=== PATIENT | male | born 1980 | race Caucasian/White ===

== ENCOUNTER 2016-10-26 00:51 | Inpatient (IN) | payer OTHER ==
[~2016-10-26] VITALS: Ht 160 cm; Wt 67.3 kg
[~2016-10-26 00:51] MED LIST: ACET-1256 PO; ACET-749 PO; ALBUAER INH
[2016-10-26 01:24] LABS: URINE APPEARANCE CLEAR (CLEAR); URINE BILIRUBIN NEG (NEG); URINE COLOR YELLOW; URINE EPITHELIAL CELL AUTO 0-5 /lpf (0-5); URINE NITRITE NEG (NEG); UROBILINOGEN NEG (NEG); ZZUR CULT IF INDIC CLEAN CATCH NO
[2016-10-26 01:25] LABS: MANUAL MICROSCOPIC REQUIRED? NO; REVIEW REQ? NO
[2016-10-26 01:26] LABS: HEMATOCRIT 48.5 % (42-52); MEAN CELL VOLUME 91.5 fL (80-100); MEAN CORPUSCULAR HEMOGLOBIN 32.1 pg (25-34); MEAN CORPUSCULAR HGB CONC 35.1 g/dl (32-36); MEAN PLATELET VOLUME 9.7 fL (7.4-10.4); PLATELET COUNT 313 K/uL (130-400); WHITE BLOOD COUNT 13.61 K/uL (4.8-10.8)
--- NOTE | 2016-10-26 01:34 | EMERGENCY ROOM VISIT NOTE ---
History Report prepared by Miguel: Amanda Gillette Under the Supervision of: Dr. Ben Solis M.D. First contact with patient: 01:04 Chief Complaint: MENTAL HEALTH EVALUATION Stated Complaint: MENTAL HEALTH ISSUES History of Present Illness The patient is a 36 year old male who presents to the Emergency Room for a mental health evaluation. The patient has a history of PTSD, anxiety, and depression with psychotic features. He has had multiple suicide attempts in the past. The patient states that his depression has been doing well for the past couple of years but he has recently "hit a rough patch in life and everything is tumbling down." About 3 weeks ago he started having suicidal thoughts and made a plan, but he started feeling better and the thoughts went away. Recently the thoughts started coming back and he is afraid that he is going to act on them. His mother is nervous that he is going to act on these thoughts and she confirms that his depression and suicidal ideation has been much worse recently. It is similar to times in the past where he has attempted suicide and she is afraid this is going to happen again. The patient states that " everything is setting off" his depression. He recently found out that his son wanted him to be back in his life, but when the patient contacted his son's mother she stated that was untrue. The patient has been having panic attacks and has not been sleeping well. He denies any drug or alcohol use. He is not currently taking any medications or following up with a psychiatrist or counselor. He denies abdominal pain and chest pain. 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 A total of 10 systems reviewed and were otherwise negative. Past Medical & Surgical Medical Problems: (1) Anxiety (2) Dental caries (3) Dental caries (4) Depression (5) Gastric ulcer (6) H/O gastroesophageal reflux (GERD) (7) Hypertension (8) Hypertension Nos (9) Lumbago (10) Pain, dental (11) PTSD (post-traumatic stress disorder) (12) Reflux Esophagitis (13) Sinusitis (14) Tobacco Use Disorder Surgical Problems: (1) Hx of cholecystectomy (2) S/P cholecystectomy Family History Cancer Diabetes mellitus Gallbladder disease Heart disease Hypertension Kidney disease Kidney stones Lung disease Seizures Social History Smoking Status: Current Every Day Smoker Alcohol Use: occasionally Marital Status: in relationship Housing Status: lives with significant other Occupation Status: employed Current/Historical Medications Scheduled Pantoprazole Sodium (Protonix), 40 MG PO DAILY Scheduled PRN Acetaminophen (Tylenol), 1,000 MG PO Q6H PRN for Headache or Pain Acetaminophen/Codeine (Tylenol W/Codeine #3), 1-2 TABS PO Q6H PRN for Pain Albuterol (Proventil Hfa), 2 PUFFS INH QID PRN for SOB/Wheezing Allergies Coded Allergies: Tramadol (Verified Allergy, Mild, SHORTNESS OF BREATH, 10/26/16) Ibuprofen (Verified Adverse Reaction, Unknown, Bleeding Ulcers, 10/26/16) Reported by PT. Uncoded Allergies: FISH (Allergy, Unknown, RASH, 12/09/14) Physical Exam Vital Signs Date Time Temp Pulse Resp B/P Pulse Ox O2 Delivery O2 Flow Rate FiO2 10/26/16 02:02 69 20 137/85 97 Room Air 10/26/16 00:54 37.1 84 16 161/101 99 Room Air Physical Exam GENERAL: Patient is depressed appearing and in no acute distress. HEENT: No acute trauma, normocephalic atraumatic, mucous membranes moist, no nasal congestion, no scleral icterus. NECK: No stridor, no adenopathy, no meningismus, trachea is midline. LUNGS: No dyspnea. Clear to auscultation and equal bilaterally. No wheeze, no rhonchi. HEART: Regular rate and rhythm. No murmurs, rubs, gallops appreciated. ABDOMEN: Soft, nontender, bowel sounds positive, no masses appreciated, no peritonitis. BACK: No midline tenderness, no CVA tenderness EXTREMITIES: Normal motion all extremities, no cyanosis, no edema. NEUROLOGIC: Alert and oriented, no acute motor or sensory deficits, no focal weakness, cranial nerves grossly intact. SKIN: No rash, no jaundice, no diaphoresis. PSYCH: Admits depression, admits SI with a plan, denies hallucination, denies HI. Medical Decision & Procedures Laboratory Results 10/26/16 01:15 Red Blood Count 5.30, Mean Corpuscular Volume 91.5, Mean Corpuscular Hemoglobin 32.1, Mean Corpuscular Hemoglobin Concent 35.1, Mean Platelet Volume 9.7 10/26/16 01:15 Test 10/26/16 01:08 10/26/16 01:15 Urine Color YELLOW Urine Appearance CLEAR (CLEAR) Urine pH 6.0 (4.5-7.5) Urine Specific [place] 1.000 (1.000-1.030) Urine Protein NEG (NEG) Urine Glucose (UA) NEG (NEG) Urine Ketones NEG (NEG) Urine Occult Blood NEG (NEG) Urine Nitrite NEG (NEG) Urine Bilirubin NEG (NEG) Urine Urobilinogen NEG (NEG) Urine Leukocyte Esterase NEG (NEG) Urine WBC (Auto) 0 /hpf (0-5) Urine RBC (Auto) 0-4 /hpf (0-4) Urine Hyaline Casts (Auto) 0 /lpf (0-5) Urine Epithelial Cells (Auto) 0-5 /lpf (0-5) Urine Bacteria (Auto) NEG (NEG) Urine Opiates Screen POS (NEG) Urine Methadone, Qualitative NEG (NEG) Urine Barbiturates NEG (NEG) Urine Phencyclidine (PCP) Level NEG (NEG) Ur Amphetamine/Methamphetamine NEG (NEG) MDMA (Ecstasy) Screen NEG (NEG) Urine Benzodiazepines Screen NEG (NEG) Urine Cocaine Metabolite NEG (NEG) Urine Marijuana (THC) POS (NEG) White Blood Count 13.61 K/uL (4.8-10.8) Red Blood Count 5.30 M/uL (4.7-6.1) Hemoglobin 17.0 g/dL (14.0-18.0) Hematocrit 48.5 % (42-52) Mean Corpuscular Volume 91.5 fL (80-100) Mean Corpuscular Hemoglobin 32.1 pg (25-34) Mean Corpuscular Hemoglobin Concent 35.1 g/dl (32-36) Platelet Count 313 K/uL (130-400) Mean Platelet Volume 9.7 fL (7.4-10.4) RDW Standard Deviation 43.3 fL (36.4-46.3) RDW Coefficient of Variation 12.9 % (11.5-14.5) Neutrophils % (Manual) 43.1 % Lymphocytes % (Manual) 28.4 % Variant Lymphocytes % (manual) 15.6 % Monocytes % (Manual) 10.1 % Basophils % (Manual) 2.8 % (0-2) Neutrophils # (Manual) 5.87 K/uL (1.4-6.5) Total Absolute Neutrophils 5.87 K/uL (1.4-6.5) Lymphocytes # (Manual) 3.87 K/uL (1.2-3.4) Absolute Variant Lymphocytes 2.12 K/uL Total Absolute Lymphocytes 5.99 K/uL (1.2-3.4) Monocytes # (Manual) 1.37 K/uL (0.11-0.59) Basophils # (Manual) 0.38 K/uL (0-0.2) Anion Gap 9.0 mmol/L (3-11) Est Creatinine Clear Calc Drug Dose 75.9 ml/min Estimated GFR () 90.9 Estimated GFR (Non- 78.4 BUN/Creatinine Ratio 10.1 (10-20) Calcium Level 9.0 mg/dl (8.5-10.1) Total Bilirubin 0.5 mg/dl (0.2-1) Aspartate Amino Transf (AST/SGOT) 16 U/L (15-37) Alanine Aminotransferase (ALT/SGPT) 29 U/L (12-78) Alkaline Phosphatase 97 U/L (45-117) Total Protein 7.5 gm/dl (6.4-8.2) Albumin 4.1 gm/dl (3.4-5.0) Globulin 3.4 gm/dl (2.5-4.0) Albumin/Globulin Ratio 1.2 (0.9-2) Thyroid Stimulating Hormone (TSH) 3.070 uIu/ml (0.300-4.500) Salicylates Level 1.8 mg/dl (2.8-20) Acetaminophen Level < 2 ug/ml (10-30) Ethyl Alcohol mg/dL < 3.0 mg/dl (0-3) Laboratory results as reviewed by me. ED Course 0104: The patient was evaluated in room A6. A complete history and physical exam was performed. 0133: [facility] was consulted. 0324: The patient has been accepted to [facility] for further management. Medical Decision Differential: Mood Disorder, Overdose, Infectious, Electrolyte Abnormality, Cardiac, Hepatic, Endocrine, Toxicologic, Neurologic, amongst other pathologies entertained. 36 yr old male arrives stating he is thinking of killing himself. Long history of depression with previous suicide attempts and admissions to psych facilities. Denies drug use though clearly Drug Urine positive. Etoh negative. He is not acutely intoxicated. Just mild WBC elevation without infectious findings thus non-specific. Mild low BG consistent with decreased eating recently. Not symptomatic hypoglycemia. Medically clear for psychiatric treatment which in this case will need inpatient treatment. Impression Primary Impression: Suicidal thoughts Additional Impression: Depression Scribe Attestation The scribe's documentation has been prepared under my direction and personally reviewed by me in its entirety. I confirm that the note above accurately reflects all work, treatment, procedures, and medical decision making performed by me. Departure Information Dispostion Mental Health Acute Care Referrals Cristel Espinoza (PCP) Patient Instructions [facility] Problem Qualifiers Additional Impression: Depression Depression Type: major depressive disorder Major depression recurrence: recurrent Active/Remission status: currently active Major depression episode severity: severe Psychotic features: without psychotic features Qualified Codes: F33.2 - Major depressive disorder, recurrent severe without psychotic features
[2016-10-26 01:50] LABS: BUN/CREATININE RATIO 10.1 (10-20); CREATININE 1.2 mg/dl (0.60-1.40); POTASSIUM 3.6 mmol/L (3.5-5.1)
[2016-10-26 01:52] LABS: BENZODIAZEPINE, URINE NEG (NEG); COCAINE,URINE NEG (NEG); PHENCYCLIDINE, URINE NEG (NEG)
[2016-10-26 01:54] LABS: ACETAMINOPHEN < 2 ug/ml (10-30)
[2016-10-26 02:00] LABS: ALB/GLOB RATIO 1.2 (0.9-2); THYROID STIMULATING HORMONE 3.07 uIu/ml (0.300-4.500)
[2016-10-26 02:14] LABS: BASO ABS # 0.38 K/uL (0-0.2); BASOPHIL % 2.8 % (0-2); COMPLETE YES; LYMPH ABS # 3.87 K/uL (1.2-3.4); LYMPHOCYTE % 28.4 %; NEUTROPHILS % 43.1 %; VARIANT LYM ABS # 2.12 K/uL; VARIANT LYMPHOCYTE % 15.6 %
[2016-10-26 03:29] VITALS: O2SAT 97
[2016-10-26] MEDS ORDERED: NURSING VERBAL MED ORDER ONE (03:30)
[2016-10-26 03:43] VITALS: BP 142/72; PULSE 72; TEMP 37.1; Ht 160 cm; Wt 67.3 kg
[2016-10-26] MEDS ORDERED: SODIUM CHLORIDE 0.65% NA SOLN 45 ML (OCEAN) PRN (05:00)
[2016-10-26] MEDS ORDERED: MAGNESIUM HYDROXIDE SUSP 30 ML UDC PO PRN (05:00)
[2016-10-26] MEDS ORDERED: BISMUTH SUBSALICYLATE PER ML OMNICELL CHARGE PO PRN (05:00)
[2016-10-26] MEDS ORDERED: ACETAMINOPHEN 325 MG TAB PO PRN (05:00)
[2016-10-26] MEDS ORDERED: ALUMINUM/MAGNESIUM SUSP 30 ML UDC PO PRN (05:00)
[2016-10-26] MEDS ORDERED: hydrOXYzine HCL 25 MG TAB PO PRN ×2 (05:00)
[2016-10-26 06:25] VITALS: BP 142/72; PULSE 72; TEMP 37.1
[2016-10-26] MEDS: NICOTINE 21 MG/24 HR TDSY EXT SCH (09:03)
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
[2016-10-26] MEDS ORDERED: CLONIDINE HCL 0.1 MG TAB PO ONE (11:45)
[2016-10-26] MEDS ORDERED: NICOTINE POLACRILEX 2 MG GUM MT PRN (12:00)
[2016-10-26 12:13] VITALS: BP 152/103; PULSE 62; TEMP 37
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
[2016-10-26 21:21] VITALS: BP 151/99; PULSE 62
[2016-10-26] MEDS: CLONIDINE HCL 0.1 MG TAB PO SCH (21:23)
[2016-10-27 06:54] VITALS: BP_SYST 127; BP_SYST 133; BP_DIAS 82; BP_DIAS 87; PULSE 65; PULSE 66; TEMP 36.5
--- NOTE | 2016-10-27 08:04 | Psychiatric Progress Notes ---
Progress Note Date of Service Oct 27, 2016. Interval History Enmanuel Jennings is a 36-year-old male who currently lives in [place] with his mother and was admitted on a 201 voluntary commitmentfor SI. Last admit to [facility] was 12/08 on 302 after argument with his mother. Chief Complaint "Tired". Subjective Patient was seen & assessed interval progress reviewed with nursing. Staff report he signed a limited JOZEF for his PO, but doesn't want him to know about his ongoing substance abuse. His mother spoke to staff and wants him to go to inpatient rehab, but he is refusing. This morning, he is seen in his room, where he is still in bed, skipping breakfast. He has gotten 2 doses of clonidine, and thinks it helped to calm him down and helped him to fall asleep, but he then woke up multiple times over night. His mood is improving, and he thinks that it is helping him to know that he is getting help. He denies suicidal thoughts. He reports sweats, but denies other withdrawal symptoms, and denies urges to use. He does not think that he has a substance abuse problem, and is refusing the recommendations for rehabilitation or even outpatient substance abuse treatment, stating "I've already done that. I don't have a problem with anything." When it is pointed out that he still using substances, he says, "well I didn't use for 5 years. I know all my triggers. I don't need drug and alcohol treatment." He states that his primary concerns in coming to the hospital was that he has financial problems, and wants us to get him on disability. Sleep Information Total Hours of Sleep: 6.50 Meal Information Percent of Breakfast Consumed: 0 Percent of Lunch Consumed: 100 Percent of Dinner Consumed: 90 Mental Status Exam During interview pt is: alert and oriented, other (partially cooperative) Appearance: appropriately dressed, disheveled, other (poor dentition) Eye contact is: fair Motor behavior is: no abnormal motor movements Speech: normal in rate, rhythm & volume Affect: other (tired) Mood is: other ("better") Thought process: concrete Thought content: reality based without delusions Suicidal thought are: denied Homicidal thoughts are: denied Hallucinations: denies auditory, denies visual Cognition: attention grossly intact (c/o poor concentration) Intelligence estimated to be: consistent with level of education Insight: poor Judgement: poor Impression 36 yo male with a history of multiple suicide attempts, intermittent explosive outbursts, past substance abuse and ongoing self medication of his self- proclaimed PTSD with MJ presents with SI with plan to OD on past prescription medication. Certainly presentation consistent with multiple diagnoses ( including borderline and/or antisocial personality disorder), but given repeated bouts of depression alternating with explosive mood, diagnosis of unspecified bipolar disorder seems most appropriate at this time. Also suspect a component of malingering, as he states his primary goal in coming to the hospital was in order to get disability. He is refusing recommendations that he addresses substance use, which is ongoing and likely contributing to his mood symptoms. Plan (1) Bipolar disorder patient refuses to restart Seroquel and will work with family to safely dispose of home supply. risks/benefits/alternatives reviewed re: lamictal. Discussion included but was not limited to need to slow titration due to risk of Mohan's Josep. He wanted time to consider as in general is resistant to restarting mood medication. reviewed options to regulate sleep and help with irritability/impulsivity, He was agreeable to a trial of clonidine. Will start 0.05 mg po BID and 0.1 mg hs. Discussion included but not limited to risks of hypotension/bradycardia and would need to consider short supplies if remains suicidal, especially if not agreeable to mood stabilizer. Certainly would need to contract to take regularly so no rebound hypertension. 3/4 - patient agreeing to lamotrigine trial. Will start standard titration schedule with 25mg daily x 2 week, then 50mg daily x 2 week, etc. Continue clonidine. (2) Legal problem JOZEF for PO to confirm dates of hospitalization, patient states he doesn't want records/drug test results shared, encouraged patient to discuss specifically what info does/doesn't want shared with administrator social welfare. (3) Nicotine dependence patch and gum nicotine replacement (4) Cannabis use disorder, mild, in sustained remission, in controlled environment, abuse The patient's drug use is admittedly self medication and against his goals related to probation. Brief intervention was offered Intervention (if performed) was greater than 5 min in length. Summary of intervention: The patient is in precontemplation stage with regards to transtheoretical model of change. The patient is advised to decrease MJ use due to depressant effects and risk of interactions with prescription medications. The patient doesn't plan to stop using as feels matter of time before able to qualify for medical MJ in [place] based on past diagnosis of PTSD. 10/27 - again reviewed the risks of ongoing substance abuse, including worsening of mood and anxiety symptoms, and the recommendations for substance abuse treatment, which she continues to refuse. (5) Hypertension will monitor BP on unit, clonidine for aggression/impulsivity should be helpful for BP will encourage PCP follow up upon discharge (6) antisocial personality traits (7) Opiate abuse, continuous Continue to abuse prescription opiates, and h/o heroin abuse Avoid prescription of controlled substances, medications that are addictive or abusable Recommend substance abuse treatment, which he is not interested in Visit Code E&M Code: 79723 Inventory Assets Strengths: desire to stay out of long-term, previously did establish rapport with a therapist Needs: employment, therapy Risk Factors Assessment Male: Yes : Yes /single/: Yes Higher / Fall in social status: Yes Health problems: No Mental Health Diagnoses: Yes Substance use disorders: Yes Previous attempt: Yes Previous psychiatric stay: Yes Smoker: Yes Protective Factors Assessment Zoroastrian beliefs: No : No Responsible for young children: Yes (would like relationship with children) Data Vital Signs Last 24 Hrs: Date Time Temp Pulse Resp B/P Pulse Ox O2 Delivery O2 Flow Rate FiO2 10/27/16 06:54 36.5 65 16 127/82 66 133/87 10/26/16 21:21 62 18 151/99 10/26/16 12:13 37.0 62 18 152/103 Meds Administered Last 24 Hrs: Meds Administered (Past 24Hrs) Medications (Trade) Dose Ordered Sig/Domonique Route Start Time Stop Time Status Last Admin Dose Admin Nicotine (Nicoderm Cq 21MG Patch) 1 patch QAM EXT 10/26/16 09:00 11/25/16 08:59 10/26/16 09:03 1 PATCH Clonidine HCl (Catapres Tab) 0.1 mg HS PO 10/26/16 22:00 11/25/16 21:59 10/26/16 21:23 0.1 MG Clonidine HCl (Catapres Tab) 0.05 mg NOW ONCE PO 10/26/16 11:45 10/26/16 11:48 DC 10/26/16 12:18 0.05 MG Problem Qualifiers (1) Bipolar disorder: Active/Remission status: currently active Current bipolar episode type: mixed Current episode severity: severe Psychotic features: without psychotic features Qualified Codes: F31.63 - Bipolar disorder, current episode mixed, severe, without psychotic features
[2016-10-27] MEDS: NICOTINE 21 MG/24 HR TDSY EXT SCH ×2 (08:56→18:51)
[2016-10-27 12:05] VITALS: BP 129/87; PULSE 80
[2016-10-27] MEDS: CLONIDINE HCL 0.1 MG TAB PO SCH ×3 (12:08→21:50)
[2016-10-27] MEDS ORDERED: CLONIDINE HCL 0.1 MG TAB PO SCH (17:00)
[2016-10-27 17:35] VITALS: BP 131/90; PULSE 64
[2016-10-27 21:51] VITALS: BP 141/95; PULSE 66
[2016-10-28 06:43] VITALS: BP_SYST 129; BP_SYST 141; BP_DIAS 83; BP_DIAS 93; PULSE 60; PULSE 73; TEMP 36.5
--- NOTE | 2016-10-28 07:55 | Psychiatric Progress Notes ---
Progress Note Date of Service Oct 28, 2016. Interval History Enmanuel Jennings is a 36-year-old male who currently lives in [place] with his mother and was admitted on a 201 voluntary commitmentfor . Last admit to [facility] was 12/08 on 302 after argument with his mother. Chief Complaint "Tired". Subjective Patient was seen & assessed interval progress reviewed with nursing. Staff report he had an angry phone call with his mother where he hung up on her. He was supposed to schedule a time for her to come in for a meeting, but did not. He stated bed all morning, but got up around lunch time, attended group and talked about his poor relationship with his father. Today, he was seen in his room, where he is still in bed, having missed all morning groups. He states that he couldn't sleep all night, and then sleeps through the first half of the day. When it was suggested that he get up, so that he will be more tired at bedtime tonight, he says "I can't, I get headaches." He talked to his mother on the phone yesterday and says "it was michael, but I smoothed it out." She says his mother hung up on him because he told her that she needed to get help. He is willing to do a meeting with his mother tomorrow, and is also requesting a meeting with his diplomatic officer, stating he missed his scheduled appointment with him last week. He states his diplomatic officer is "mad at me" because he hasn't been following the terms of his probation. He reports mood that is "all over the place, my anxiety still not going away." He says he has tried breathing exercises and "going to my own little happy place, but it don't work, just takes the anxiety down some...is there anything else I can get for anxiety?" When advised that he has hydroxyzine ordered, he says it doesn't work for him. He again asks about disability, stating "this whole job thing is killing me, I don't know how people do it, just go to work every day." Again reviewed treatment recommendations with him, including the importance of addressing his substance abuse, which she continues to denies a problem. He says "I only get high to help cope with everything, so I won't kill myself. I' m willing to do whatever it takes to stop me from killing myself. Sleep Information Total Hours of Sleep: 10.25 Meal Information Percent of Breakfast Consumed: 0 Percent of Lunch Consumed: 75 Percent of Dinner Consumed: 100 Mental Status Exam During interview pt is: alert and oriented, other (partially cooperative) Appearance: appropriately dressed, disheveled, other (poor dentition, still in bed midday) Eye contact is: fair Motor behavior is: no abnormal motor movements Speech: normal in rate, rhythm & volume Affect: blunted Mood is: other ("tired") Thought process: concrete (focused on wanting disability) Thought content: reality based without delusions Suicidal thought are: denied Homicidal thoughts are: denied Hallucinations: denies auditory, denies visual Cognition: attention grossly intact, language grossly intact Intelligence estimated to be: consistent with level of education Insight: poor Judgement: poor Impression 36 yo male with a history of multiple suicide attempts, anger outbursts outbursts, substance abuse and ongoing self medication of his self-proclaimed PTSD with MJ presents with SI with plan to OD on past prescription medication. Certainly presentation consistent with multiple diagnoses (including borderline and/or antisocial personality disorder), but given repeated bouts of depression alternating with explosive mood, diagnosis of unspecified bipolar disorder was given on admission, and he was started on clonidine, and then lamotrigine. Also suspect a significant component of antisocial personality disorder and malingering, as he states his primary goal in coming to the hospital was in order to get disability. He is refusing recommendations that he addresses substance use, which is ongoing and likely contributing to his mood symptoms. Plan (1) Bipolar disorder patient refuses to restart Seroquel and will work with family to safely dispose of home supply. risks/benefits/alternatives reviewed re: lamictal. Discussion included but was not limited to need to slow titration due to risk of Mohan's Josep. He wanted time to consider as in general is resistant to restarting mood medication. reviewed options to regulate sleep and help with irritability/impulsivity, He was agreeable to a trial of clonidine. Will start 0.05 mg po BID and 0.1 mg hs. Discussion included but not limited to risks of hypotension/bradycardia and would need to consider short supplies if remains suicidal, especially if not agreeable to mood stabilizer. Certainly would need to contract to take regularly so no rebound hypertension. 3/4 - patient agreeing to lamotrigine trial. Will start standard titration schedule with 25mg daily x 2 week, then 50mg daily x 2 week, etc. Continue clonidine. 3/5 - patient is requesting a family meeting with his mother and with his diplomatic officer, to be scheduled for tomorrow. He is requesting a referral to [facility], where he has been seen in the past. (2) Legal problem JOZEF for PO to confirm dates of hospitalization, patient states he doesn't want records/drug test results shared, encouraged patient to discuss specifically what info does/doesn't want shared with long term care social worker. (3) Nicotine dependence patch and gum nicotine replacement (4) Cannabis use disorder, mild, in sustained remission, in controlled environment, abuse The patient's drug use is admittedly self medication and against his goals related to probation. Brief intervention was offered Intervention (if performed) was greater than 5 min in length. Summary of intervention: The patient is in precontemplation stage with regards to transtheoretical model of change. The patient is advised to decrease MJ use due to depressant effects and risk of interactions with prescription medications. The patient doesn't plan to stop using as feels matter of time before able to qualify for medical MJ in [place] based on past diagnosis of PTSD. 3/ - again reviewed the risks of ongoing substance abuse, including worsening of mood and anxiety symptoms, and the recommendations for substance abuse treatment, which she continues to refuse. 35 - patient continues to minimize his substance abuse, today stating that he only uses to stop himself from committing suicide. He continues to refuse the recommendations for substance abuse treatment. (5) Hypertension will monitor BP on unit, clonidine for aggression/impulsivity should be helpful for BP will encourage PCP follow up upon discharge (6) antisocial personality traits Past history reveals a pattern of repeated ask that her grounds for arrest, impulsivity and failure to plan ahead, irritability and aggressiveness, and consistent irresponsibility. (7) Opiate abuse, continuous Continue to abuse prescription opiates, and h/o heroin abuse Avoid prescription of controlled substances, medications that are addictive or abusable Recommend substance abuse treatment, which he is not interested in Visit Code E&M Code: 68088 Inventory Assets Strengths: desire to stay out of group home, previously did establish rapport with a therapist Needs: employment, therapy Risk Factors Assessment Male: Yes : Yes /single/: Yes Higher / Fall in social status: Yes Health problems: No Mental Health Diagnoses: Yes Substance use disorders: Yes Previous attempt: Yes Previous psychiatric stay: Yes Smoker: Yes Protective Factors Assessment Pentecostal beliefs: No : No Responsible for young children: Yes (would like relationship with children) Data Vital Signs Last 24 Hrs: Date Time Temp Pulse Resp B/P Pulse Ox O2 Delivery O2 Flow Rate FiO2 10/28/16 06:43 36.5 60 16 129/83 73 141/93 10/27/16 21:51 66 141/95 10/27/16 17:35 64 131/90 10/27/16 12:05 80 18 129/87 Meds Administered Last 24 Hrs: Meds Administered (Past 24Hrs) Medications (Trade) Dose Ordered Sig/Domonique Route Start Time Stop Time Status Last Admin Dose Admin Nicotine (Nicoderm Cq 21MG Patch) 1 patch QAM EXT 10/26/16 09:00 11/25/16 08:59 10/27/16 18:51 1 PATCH Miscellaneous (Remove Nicoderm Patch) 1 ea QAM N/A 10/27/16 09:00 11/26/16 08:59 10/27/16 09:27 1 EA Clonidine HCl (Catapres Tab) 0.1 mg HS PO 10/26/16 22:00 11/25/16 21:59 10/27/16 21:50 0.1 MG Clonidine HCl (Catapres Tab) 0.05 mg NOW ONCE PO 10/26/16 11:45 10/26/16 11:48 DC 10/26/16 12:18 0.05 MG Clonidine HCl (Catapres Tab) 0.05 mg BID17 PO 10/27/16 12:00 11/26/16 11:59 10/27/16 17:40 0.05 MG Problem Qualifiers (1) Bipolar disorder: Active/Remission status: currently active Current bipolar episode type: mixed Current episode severity: severe Psychotic features: without psychotic features Qualified Codes: F31.63 - Bipolar disorder, current episode mixed, severe, without psychotic features
[2016-10-28] MEDS: NICOTINE 21 MG/24 HR TDSY EXT SCH ×2 (09:00→17:28)
[2016-10-28] MEDS: CLONIDINE HCL 0.1 MG TAB PO SCH ×3 (09:00→21:08)
[2016-10-28 21:07] VITALS: BP 127/84; PULSE 78
[2016-10-29 06:50] VITALS: BP_SYST 124; BP_SYST 125; BP_DIAS 79; BP_DIAS 88; PULSE 61; PULSE 75; TEMP 36.5
[2016-10-29] MEDS: NICOTINE 21 MG/24 HR TDSY EXT SCH (09:18)
[2016-10-29] MEDS: CLONIDINE HCL 0.1 MG TAB PO SCH ×3 (09:18→22:07)
--- NOTE | 2016-10-29 13:21 | Psychiatric Progress Notes ---
Progress Note Date of Service Oct 29, 2016. Interval History Enmanuel Jennings is a 36-year-old male who currently lives in [place] with his mother and was admitted on a 201 voluntary commitmentfor SI. Last admit to [facility] was 12/08 on 302 after argument with his mother. Chief Complaint "Okay". Subjective Patient was seen & assessed interval progress reviewed with Treatment Team. Staff report he told them today he was willing for a referral to rehab. When asked what changed his mind, he says "three different people asked about rehab, and I guess I will try it." He is only willing to go to [facility], and is refusing to consider [facility] and [place] facilities, even after being told that [facility] declined to accept him. He says he doesn't really need to go to rehab, because "I've been in here, getting away from it, really don't think I have a problem," and thinks he will just do outpatient treatment. He says he "wants to figure out the meaning of my impulsive behaviors, I've read up on that, and it fits me right to a T." He wants to continue to work on "coping skills" here, saying he "doesn't know which ones to use," saying he's been using substances "to cope." He continues to deny SI, is eating well, and is sleeping >8 hours a day, although he reports frequent awakening. Sleep Information Total Hours of Sleep: 5.50 Meal Information Percent of Breakfast Consumed: 0 Percent of Lunch Consumed: 100 Percent of Dinner Consumed: 100 Mental Status Exam During interview pt is: alert and oriented Appearance: appropriately dressed, disheveled, other (poor dentition) Eye contact is: fair Motor behavior is: no abnormal motor movements Speech: normal in rate, rhythm & volume Affect: blunted Mood is: other ("okay") Thought process: concrete Thought content: reality based without delusions Suicidal thought are: denied Homicidal thoughts are: denied Hallucinations: denies auditory, denies visual Cognition: attention grossly intact, language grossly intact Intelligence estimated to be: consistent with level of education Insight: poor Judgement: poor Impression 36 yo male with a history of multiple suicide attempts, anger outbursts outbursts, substance abuse and ongoing self medication of his self-proclaimed PTSD with MJ presents with SI with plan to OD on past prescription medication. Certainly presentation consistent with multiple diagnoses (including borderline and/or antisocial personality disorder), but given repeated bouts of depression alternating with explosive mood, diagnosis of unspecified bipolar disorder was given on admission, and he was started on clonidine, and then lamotrigine. Also suspect a significant component of antisocial personality disorder and malingering, as he states his primary goal in coming to the hospital was in order to get disability. He is refusing recommendations that he addresses substance use, which is ongoing and likely contributing to his mood symptoms. Plan (1) Bipolar disorder patient refuses to restart Seroquel and will work with family to safely dispose of home supply. risks/benefits/alternatives reviewed re: lamictal. Discussion included but was not limited to need to slow titration due to risk of Mohan's Josep. He wanted time to consider as in general is resistant to restarting mood medication. reviewed options to regulate sleep and help with irritability/impulsivity, He was agreeable to a trial of clonidine. Will start 0.05 mg po BID and 0.1 mg hs. Discussion included but not limited to risks of hypotension/bradycardia and would need to consider short supplies if remains suicidal, especially if not agreeable to mood stabilizer. Certainly would need to contract to take regularly so no rebound hypertension. 3/4 - patient agreeing to lamotrigine trial. Will start standard titration schedule with 25mg daily x 2 week, then 50mg daily x 2 week, etc. Continue clonidine. 35 - patient is requesting a family meeting with his mother and with his chief communications officer, to be scheduled for tomorrow. He is requesting a referral to [facility], where he has been seen in the past. 3/6 - patient agreed to rehab, but only [facility], which declined him. Refusing to consider going to another facility. Now wants IOP. Mother has not returned calls to schedule a family meeting. Need to schedule meeting with PO. (2) Legal problem JOZEF for PO to confirm dates of hospitalization, patient states he doesn't want records/drug test results shared, encouraged patient to discuss specifically what info does/doesn't want shared with manager social responsibility. (3) Nicotine dependence patch and gum nicotine replacement (4) Cannabis use disorder, mild, in sustained remission, in controlled environment, abuse The patient's drug use is admittedly self medication and against his goals related to probation. Brief intervention was offered Intervention (if performed) was greater than 5 min in length. Summary of intervention: The patient is in precontemplation stage with regards to transtheoretical model of change. The patient is advised to decrease MJ use due to depressant effects and risk of interactions with prescription medications. The patient doesn't plan to stop using as feels matter of time before able to qualify for medical MJ in [place] based on past diagnosis of PTSD. 10/27 - again reviewed the risks of ongoing substance abuse, including worsening of mood and anxiety symptoms, and the recommendations for substance abuse treatment, which she continues to refuse. 10/28 - patient continues to minimize his substance abuse, today stating that he only uses to stop himself from committing suicide. He continues to refuse the recommendations for substance abuse treatment. (5) Opiate abuse, continuous Continue to abuse prescription opiates, and h/o heroin abuse Avoid prescription of controlled substances, medications that are addictive or abusable Recommend substance abuse treatment, which he is not interested in (6) Antisocial personality disorder Past history reveals a pattern of repeated ask that her grounds for arrest, impulsivity and failure to plan ahead, irritability and aggressiveness, and consistent irresponsibility. Also diagnosed with ASPD during past hospitalization here. (7) Hypertension will monitor BP on unit, clonidine for aggression/impulsivity should be helpful for BP will encourage PCP follow up upon discharge Visit Code E&M Code: 64404 Inventory Assets Strengths: desire to stay out of nursing home, previously did establish rapport with a therapist Needs: employment, therapy Risk Factors Assessment Male: Yes : Yes /single/: Yes Higher / Fall in social status: Yes Health problems: No Mental Health Diagnoses: Yes Substance use disorders: Yes Previous attempt: Yes Family history of suicide: No Previous psychiatric stay: Yes Smoker: Yes Protective Factors Assessment Temple beliefs: No : No Responsible for young children: No (would like relationship with children) Employed: No Stable relationships: No Good rapport with provider: No Data Vital Signs Last 24 Hrs: Date Time Temp Pulse Resp B/P Pulse Ox O2 Delivery O2 Flow Rate FiO2 10/29/16 06:50 36.5 61 16 124/88 75 125/79 10/28/16 21:07 78 127/84 Meds Administered Last 24 Hrs: Meds Administered (Past 24Hrs) Medications (Trade) Dose Ordered Sig/Domonique Route Start Time Stop Time Status Last Admin Dose Admin Lamotrigine (Lamictal Tab) 25 mg Taper QAM PO 10/28/16 09:00 12/09/16 08:59 10/29/16 09:19 25 MG Problem Qualifiers (1) Bipolar disorder: Active/Remission status: currently active Current bipolar episode type: mixed Current episode severity: severe Psychotic features: without psychotic features Qualified Codes: F31.63 - Bipolar disorder, current episode mixed, severe, without psychotic features
[2016-10-29 15:34] LABS: COD UR NEGATIVE NG/ML (CUTOFF=50); HYDROCOD UR 420 NG/ML (CUTOFF=50); HYDROMOR UR 51 NG/ML (CUTOFF=50); MORPHINE UR NEGATIVE NG/ML (CUTOFF=50); NORHYDROCODONE CONF UR 387 NG/ML (CUTOFF=50); OXYMORPH UR NEGATIVE NG/ML (CUTOFF=50)
[2016-10-30 07:07] VITALS: BP_SYST 113; BP_SYST 121; BP_DIAS 70; BP_DIAS 78; PULSE 61; PULSE 71; TEMP 36.5
[2016-10-30] MEDS: CLONIDINE HCL 0.1 MG TAB PO SCH (08:57)
[2016-10-30] MEDS: NICOTINE 21 MG/24 HR TDSY EXT SCH (08:58)
[2016-10-30] MEDS ORDERED: LMC25 PO (09:31)
[2016-10-30] MEDS ORDERED: CTP1 PO ×2 (09:31)
--- NOTE | 2016-10-30 10:01 | Discharge Instructions ---
Discharge Information Report Includes Report will include the: Discharge Instructions & Summary Admission Admission Date / Time: Oct 26, 2016 at 03:27 Reason for Admission: Depressive Disorder, Nos Discharge Discharge Diagnosis / Problem: Bipolar not otherwise specified, polysubstance abuse. Condition at Discharge: Fair Discharge Goals Goal(s): Improve function, Improve disease control, Learn about illness, Therapeutic intervention Activity Recommendations Activity Limitations: per Instructions/Follow-up section . Instructions / Follow-Up Instructions / Follow-Up . SPECIAL CARE INSTRUCTIONS: 1. Follow through with your scheduled aftercare appointments. If unable to keep an appointment, please call to reschedule. We recommended you go to inpatient rehab for substance abuse treatment, which you declined. You are instead being referred to intensive outpatient substance abuse treatment at [facility]. 2. Take your medication only as prescribed. Medication should not be changed or stopped without the approval of your doctor. In the event of worsening symptoms or concerns about side effects, contact your doctor immediately. 3. Utilize new healthy coping skills, anger management skills, and stress management skills learned during your hospitalization. Journal feelings and process them with a support person. Identify stressors or situations that may result in relapse, deterioration or inappropriate behaviors and develop a plan to deal with those issues. 4. If your coping skills are ineffective and you are in crisis, contact your outpatient providers for direction. If unable to reach your providers, please call the CAN HELP LINE AT or go to the closest Emergency Room. 5. You should not drink alcohol, use recreational drugs, illicit drugs, or prescription medications that are addictive or abusable. 6. You have been provided with the Mental Health Advance Directives Pamphlet for your review. AFTERCARE APPOINTMENTS: * Please call your insurance company prior to your scheduled appointment to confirm your aftercare providers are covered. Take your insurance information to your appointments. . Discharge / Aftercare Planning . Follow-Up Care Plan for Follow-Up Care: See above. Current Hospital Diet Patient's current hospital diet: Regular Diet Discharge Diet Recommended Diet: Regular Diet Procedures Procedures Performed: No Pending Studies Pending Studies at Discharge: No Medical Emergencies . Who to Call and When: Medical Emergencies: For questions or emergencies related to your hospital stay, please contact the Inpatient Behavioral Health Unit at [phone]. A line ordering clinician is on-call 18/03 for the Behavioral Health Unit for emergencies At any time you feel your situation is an emergency, you may also call 911 immediately. . Non-Emergent Contact Non-Emergency issues call your: Primary Care Provider, Psychiatrist, Therapist , Manager Room Past History Medical & Surgical History: (1) Cannabis abuse (2) Suicidal thoughts (3) Opiate abuse, continuous (4) Antisocial personality disorder Advance Directives Existing Advance Directive: No Do You Have an Existing Mental: No Existing Living Will: No Existing Power of Check Writing Machine Operator: No Advance Directives Info Given: To Pt/S.O. Discharge Summary Admission HPI Per the Admitting provider: Enmanuel reports depressed mood and poor sleep with racing thoughts and worsening social anxiety since serving shelter time on terroristic threats and assault charges. He denies the latter stating that he was just trying to get away from his exgirlfriend. In the past 3 weeks he has been experiencing suicidal ideation with plan to OD on an old prescription of Seroquel (700 mg total left) . He feels irritated or "vengeful" but denies thoughts to harm others. He sleeps from only about 2 am to 5 am. He states that he uses MJ daily to calm down and that mother notices significant mood swings if he stops using for a few days in preparation for seeing his multisensor intelligence officer. He has been experiencing non specific nightmares as well, doesn't relate them to his PTSD history. While in alf he states he experienced nonspecific aud machuca at night but more recently only saw shadows in peripheral vision. He indicated to student that he thought his mother's house may be haunted. He has had some back pain recently from sleeping on mom's couch and reported hx of scoliosis for which he took 1 pill of a friend's prescription pain med. He denies regular use. He denies withdrawal symptoms. Other stressors include inability to find a job and his mother and health promotion officer "riding" him about it. 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 His grandmother while he was incarcerated and there are relationship issues related to the mother's of his children with whom he seems to have very little contact with. He denies periods of euphoria or elevated mood but clearly describes periods of increased agitation for >1 week at a time associated with increased impulsivity and poor sleep. These episodes were previously diagnosed as IED, borderline personality disorder and or related to psychotic features of depression. Appetite has also been poor past few days as recent N/V. Admission Exam Per the Admitting provider: Please see admission H&P. Consultations None. Hospital Course (1) Bipolar disorder patient refuses to restart Seroquel and will work with family to safely dispose of home supply. risks/benefits/alternatives reviewed re: lamictal. Discussion included but was not limited to need to slow titration due to risk of Mohan's Josep. He wanted time to consider as in general is resistant to restarting mood medication. reviewed options to regulate sleep and help with irritability/impulsivity, He was agreeable to a trial of clonidine. Will start 0.05 mg po BID and 0.1 mg hs. Discussion included but not limited to risks of hypotension/bradycardia and would need to consider short supplies if remains suicidal, especially if not agreeable to mood stabilizer. Certainly would need to contract to take regularly so no rebound hypertension. 10/27 - patient agreeing to lamotrigine trial. Will start standard titration schedule with 25mg daily x 2 week, then 50mg daily x 2 week, etc. Continue clonidine. 10/28 - patient is requesting a family meeting with his mother and with his multisensor intelligence officer, to be scheduled for tomorrow. He is requesting a referral to [facility], where he has been seen in the past. 10/29 - Patient agreed to rehab, but only [facility], which declined him. Refusing to consider going to another facility. Now wants IOP. - Meeting held with mother, who stated he could not return to stay with her unless he went to rehab and got clean. Meeting also held with multisensor intelligence officer. Patient continues to refuse referrals to other rehabs, and is only willing for outpatient treatment. 10/30 - Patient says his mother is now allowing him to return to her home. He is willing to follow up at [facility] for substance abuse treatment, [facility] for psychiatric follow up, and [facility] for case management. (2) Legal problem JOZEF for PO to confirm dates of hospitalization, patient states he doesn't want records/drug test results shared, encouraged patient to discuss specifically what info does/doesn't want shared with outreach and education social worker. 10/29 - Meeting held with PO by phone. Patient is refusing the recommended treatment (inpatient rehab), and is only willing to go to outpatient treatment. He shows poor insight into his substance abuse issues, and is not willing to commit to making changes, making excuses for his ongoing substance abuse. (3) Nicotine dependence patch and gum nicotine replacement (4) Cannabis use disorder, mild, in sustained remission, in controlled environment, abuse The patient's drug use is admittedly self medication and against his goals related to probation. Drug screen is positive for opiates (says he took opiate pain meds he got from a friend), and THC. Brief intervention was offered Intervention (if performed) was greater than 5 min in length. Summary of intervention: The patient is in precontemplation stage with regards to transtheoretical model of change. The patient is advised to decrease MJ use due to depressant effects and risk of interactions with prescription medications. The patient doesn't plan to stop using as feels matter of time before able to qualify for medical MJ in [place] based on past diagnosis of PTSD. 10/27 - again reviewed the risks of ongoing substance abuse, including worsening of mood and anxiety symptoms, and the recommendations for substance abuse treatment, which she continues to refuse. 10/28 - patient continues to minimize his substance abuse, today stating that he only uses to stop himself from committing suicide. He continues to refuse the recommendations for substance abuse treatment. 10/30 - Again reviewed the risks of continued substance abuse and the recommendations for abstinence from all controlled substances, including cannabis, other drugs of abuse, prescription medications that are addictive or abusable, and alcohol. He continues to refuse inpatient rehab. He is willing for a referral to [facility]. (5) Opiate abuse, continuous Continue to abuse prescription opiates, and h/o heroin abuse Avoid prescription of controlled substances, medications that are addictive or abusable Recommend substance abuse treatment, which he is not interested in Not forthcoming re: opiate prescriptions, as on admission reported he was prescribed Tylenol with codeine, but on review of [place]'s Controlled Prescription Database, he has not filled any prescriptions for controlled substances in the past year. When asked about this, he admits he did not have a prescription, and took pills he got illicitly. (6) Antisocial personality disorder Past history reveals a pattern of repeated ask that her grounds for arrest, impulsivity and failure to plan ahead, irritability and aggressiveness, and consistent irresponsibility. Also diagnosed with ASPD during past hospitalization here. Likely component of malingering as well, as patient presented just after missing a scheduled meeting with his multisensor intelligence officer, and tested positive for multiple controlled substances. He is not accepting the recommended treatment and says he came to the hospital to get disability, because he doesn't want to work. Clear secondary gain in seeking to avoid return to shelter, and to get disability and avoid work. (7) Hypertension will monitor BP on unit, clonidine for aggression/impulsivity should be helpful for BP will encourage PCP follow up upon discharge Risk Factors Assessment Male: Yes : Yes /single/: Yes Higher / Fall in social status: Yes Access to guns: No Health problems: No Mental Health Diagnoses: Yes Substance use disorders: Yes Previous attempt: Yes Family history of suicide: No Previous psychiatric stay: Yes Smoker: Yes Protective Factors Assessment Christian beliefs: No : No Responsible for young children: No Employed: No Stable relationships: No Supportive family: Yes Good rapport with provider: No Absence of risk factors above: Yes (risk factors have been mitigated by addressing mood disorder with medications, involving him in groups and therapy on the unit, working on healthy coping skills and her discharge safety plan, and referring him for outpatient follow-up. He had a meeting with his multisensor intelligence officer and his mother, and his mother is allowing him to return to stay with her. Attempts were made to educate them about the risks of ongoing substance abuse, and although he shows poor insight and is refusing the recommendations for inpatient rehabilitation, he was willing for a referral for outpatient treatment. He has been performing his own ADLs, eating and sleeping well, and taking medications as prescribed. He has not been agitated, threatening, or aggressive here. He is denying suicidal thoughts and has not engaged in self-injurious behavior. He is requesting discharge, and is he is no longer at acute risk of harm to himself, can be managed as an outpatient at this time.) Day of Discharge Assessment Hospital course: On admission, the patient reported depressed mood, poor sleep, racing thoughts, worsening anxiety, irritability, and ongoing cannabis and opiate abuse. He has not started working since release from shelter, which was apparently a condition of his probation. He also endorsed stressors of 3 children with whom he has little contact with, and relationship problems with their mothers. He was diagnosed with bipolar disorder not otherwise specified. He did not want to resume Seroquel, which he been on in the past, and was reluctant to agree to a trial of lamotrigine, so was initially started on clonidine to help with sleep, irritability, and impulsivity, as well as opiate withdrawal. He tolerated the medication well, and the following day agreed to start lamotrigine. He signed a release for his multisensor intelligence officer, but specified that he did not want him informed of the patient's positive drug screen results. His first several days in the hospital he stayed in bed all morning, missing most of the groups, but attended groups in the evening. He had meetings with both his mother and multisensor intelligence officer on October 29 2016. His mother endorsed frustration that he does not take care of himself or make good decisions, and stated that he could not return to live with her because she needs to set limits with him. He was angry about this, stating it was unfair because he needs and address as a condition of his probation, and that no good mother would do something that would cause her son to return to shelter. His mother said that if he would go to inpatient rehabilitation is recommended, she would reconsider her decision, and encouraged him to "finally grow up and be a man and get a job with a 36-year- old should do." He said that his brother only has a job because somebody came to his brother and offered it, and complained that no one had come to him to offer him a job. His mother encouraged him to accept responsibility for finding his own job, and suggested that he call his father. A phone call was placed in a message left for his father, who has not yet called back at the time of discharge. The patient stated that he already knows his father will not allow him to stay with him. The meeting was also held with his multisensor intelligence officer and the patient admitted to using marijuana, which he said he did so that he would not hurt himself. His mood improved throughout his stay, and he was noted to be sleeping less during the day, engaging more with peers, and more active in groups. Date of discharge assessment: The patient states his mood is "good," and it is improved from admission. He denies suicidal thoughts, thoughts of harming others, or concerns about his safety. He states that he talked to his mother again last night, and she told him that she would give him another chance and allow him to come back and stay with her. He is willing to follow-up with outpatient substance abuse treatment at [facility], psychiatric follow-up at [facility], and [facility] management [facility]. When reviewing his discharge medications, he was asked about his report on admission that he was prescribed Tylenol with Codeine. He initially states that he had a prescription for this, but then says that it was from several months ago, but when the [place] controlled prescription database was reviewed, it showed that he had not filled any controlled substance prescriptions in the past year. When he was asked about this, he said he never filled the prescription, and had been taking pain medications that he got from friends. He went on to say that a past therapist had told him that it was okay for him to get opiate pain medication prescriptions as long as "I use them responsibly," and was resistant to suggestions that it is not in fact safe for him to take these types of medications, and that he should not take anything that is addictive or abusable. Further advised him that it is his responsibility to inform his physicians of his addiction history, so that safe her medications can be chosen if needed. Again reviewed the risks of ongoing substance abuse, and the recommendations for complete abstinence from any substances that are addictive or abusable. Also reviewed recommendations that he pursue inpatient rehabilitation if he is unable to maintain sobriety with outpatient treatment. He is able to review the healthy coping skills he has been working on here, as well as his discharge safety plan. He continues to make comments about his inability to work due to mental illness, and was encouraged to first seek treatment, and advised that his mental illness should not prevent him from working, and in fact it may be psychologically helpful for him to be engaged in gainful employment. Well nourished, well developed WM appearing older than his stated age. Casually dressed with limited hygiene and grooming. Calm and cooperative. Seated in NAD , with fair eye contact and no abnormal movements. Speech is normal rate, volume, and tone. Mood is "good," and affect is stable and congruent. Thoughts are linear, logical and goal directed. The patient denied suicidal and homicidal ideation and was able to safety plan. No paranoia, delusions, or hallucinations, and did not appear to be responding to internal stimuli. Cognition was grossly intact. Alert and oriented to person, place and time. Intelligence is consistent with level of education. Insight and and judgment are fair. Laboratory Refer to printed laboratory reports Total Time Total Time Spent (min): Greater than 30 minutes Total Time Included: examination of the patient, discharge planning, medication reconciliation Tobacco Cessation at Discharge FDA approved Prescription: patient refused Problem Qualifiers (1) Bipolar disorder: Active/Remission status: currently active Current bipolar episode type: mixed Current episode severity: severe Psychotic features: without psychotic features Qualified Codes: F31.63 - Bipolar disorder, current episode mixed, severe, without psychotic features
[2016-12-25] MEDS ORDERED: PANT40TA PO (16:44)
== END 2016-10-30 13:20 | disposition home or self-care (01) | DRG 885 ==
LOC: ENRESERVDT → ENRESERVTM → C.EDB 00:53 → C.MHU 03:27
PROVIDERS: ADMIT Psychiatry & Neurology Psychiatry; ATTEND Psychiatry & Neurology Child & Adolescent Psychiatry
DX: F31.63 Bipolar disorder, current episode mixed, severe, without psychotic features (principal); F11.23 Opioid dependence with withdrawal; R45.851 Suicidal ideations; F17.200 Nicotine dependence, unspecified, uncomplicated; F60.2 Antisocial personality disorder; I10 Essential (primary) hypertension; F12.10 Cannabis abuse, uncomplicated; J45.909 Unspecified asthma, uncomplicated; K21.9 Gastro-esophageal reflux disease without esophagitis; K25.9 Gastric ulcer, unspecified as acute or chronic, without hemorrhage or perforation; Z65.3 Problems related to other legal circumstances; Z79.899 Other long term (current) drug therapy

== ENCOUNTER 2016-12-25 16:58 | Emergency (ER) | payer OTHER ==
[~2016-12-25] VITALS: Ht 160 cm; Wt 64.4 kg
[~2016-12-25 16:58] MED LIST changes: -ACET-1256 PO; -ACET-749 PO; +CTP1 PO; +LMC25 PO; +PANT40TA PO
[2016-12-25 17:01] VITALS: TEMP 36.9; Ht 160 cm; Wt 64.4 kg
[2016-12-25] MEDS ORDERED: PENICILLIN V POTASSIUM 250 MG TAB PO STA (17:22)
[2016-12-25] MEDS ORDERED: HYDROCODONE/ACETAMOPHEN 5/325MG TAB PO STA (17:22)
[2016-12-25] MEDS ORDERED: HYDR-5688 PO (17:27)
[2016-12-25] MEDS ORDERED: PENI-82 PO (17:27)
--- NOTE | 2016-12-25 17:29 | EMERGENCY ROOM VISIT NOTE ---
ED Visit Note First contact with patient: 17:07 CHIEF COMPLAINT: "Pain in teeth, fever". HISTORY OF PRESENT ILLNESS: This 36-year-old male patient presented to the emergency department via private vehicle accompanied by male with a progressive toothache for past few years, and most recently past few days. The patient believes it is coming from right superior molars. The pain is now steady and severe and radiates to the face. The patient does not currently have a dentist. He states that a few years ago he follow-up with a dentist in [facility], and was to see an oral surgeon to have his teeth completely removed. He states that he lost his insurance and did not have the procedure completed. He has been using Orajel without relief. He states when he brushes his teeth his gum in that region will bleed. He rates the pain as a 9.5/10. He does admit to smoking daily. There is associated nausea but no vomiting. He denies any fevers. REVIEW OF SYSTEMS: A 6 system review of systems was completed with positives and pertinent negatives listed in the HPI. ALLERGIES: Fish, ibuprofen, tramadol MEDICATIONS: As noted below PMH: No pertinent past medical history SOCIAL HISTORY: Patient lives locally PHYSICAL EXAM: Vitals are noted on the nurse's note and reviewed by myself. Vital signs stable. Temperature 36.9C orally. GENERAL: 36-year-old male, in no acute distress, nondiaphoretic, well-developed well-nourished. Mouth: The entire dentition tooth is very carious and the posterior, inferior right upper tooth region and gum is swollen and tender around it, without any discharge or signs of an abscess. The remainder of the pharynx and tonsils are without erythema, edema, or exudate. The airway is patent. There is no facial swelling , cervical or submandibular lymphadenopathy. The patient appears uncomfortable and in pain. The patient has overall very poor dental hygiene. EARS: External auditory canals clear, tympanic membranes pearly lynn without erythema or effusion bilaterally. ED COURSE: Patient was seen and evaluated as above. The patient has been here previously for dental pain. He does not have an established dentist. The patient was provided literature and contact information for a local dentist who is accepting new patients. He is to call him first thing tomorrow morning. At this time the patient is expressing odontalgia without evidence of abscess or sepsis. There is no evidence of Christiano angina. No evidence of meningitis. He' ll be treated with penicillin 4 times daily for 10 days as well as a short-term prescription for Inglewood. He was instructed to not take this with Tylenol. He was educated upon limitations of emergency department upon managing long-term dental issues. He was educated upon worrisome symptoms which to return, had questions prior to discharge and was discharged home in good condition. In the evaluation and treatment of this patient, the following differential diagnoses were considered: Periapical Abscess, Osteonecrosis of the Jaw, Dental Fracture, Dental Caries, Christiano's Angina, Vincent's Angina, Facial Cellulitis. In the treatment of this patient controlled medication was utilized and therefore the [facility], Prescription Drug Monitoring Program website was utilized to look up this patient. No concerns were identified that would prohibit or alter my treatment decision. Problem List Medical Problems: (1) Anxiety Status: Chronic (2) Dental caries Status: Chronic (3) Dental caries Status: Resolved (4) Depression Status: Chronic (5) Gastric ulcer Status: Chronic (6) H/O gastroesophageal reflux (GERD) Status: Chronic (7) Hypertension Status: Chronic (8) Hypertension Nos Status: Chronic (9) Lumbago Status: Chronic (10) Pain, dental Status: Resolved (11) PTSD (post-traumatic stress disorder) Status: Chronic (12) Reflux Esophagitis Status: Chronic (13) Sinusitis Status: Resolved (14) Tobacco Use Disorder Status: Chronic Surgical Problems: (1) Hx of cholecystectomy Status: Resolved (2) S/P cholecystectomy Status: Resolved Current/Historical Medications Scheduled Clonidine HCl (Clonidine HCl), 0.05 MG PO BID17 Clonidine HCl (Clonidine HCl), 0.1 MG PO HS Lamotrigine (Lamotrigine), 25 MG PO QAM Pantoprazole Sodium (Protonix), 40 MG PO DAILY Penicillin V Potassium (Veetids), 500 MG PO QID Scheduled PRN Hydrocodone/Acetaminophen 5MG/325MG (Inglewood 5MG/325MG), 1-2 TABLET PO Q6H PRN for Pain Allergies Coded Allergies: Tramadol (Verified Allergy, Mild, SHORTNESS OF BREATH, 12/25/16) Ibuprofen (Verified Adverse Reaction, Unknown, Bleeding Ulcers, 12/25/16) Reported by PT. Uncoded Allergies: FISH (Allergy, Unknown, RASH, 12/09/14) Vital Signs Date Time Temp Pulse Resp B/P Pulse Ox O2 Delivery O2 Flow Rate FiO2 12/25/16 17:49 88 18 150/98 96 12/25/16 17:01 36.9 92 20 158/104 99 Room Air Medications Administered Medications (Trade) Dose Ordered Sig/Domonique Route Start Time Stop Time Status Last Admin Dose Admin Acetaminophen/ Hydrocodone Bitart (Inglewood 5/325 Tab) 1 tab NOW STAT PO 12/25/16 17:22 12/25/16 17:24 DC 12/25/16 17:40 1 TAB Penicillin V Potassium (Veetids Tab) 500 mg ONE STAT PO 12/25/16 17:22 12/25/16 17:24 DC 12/25/16 17:40 500 MG Departure Information Impression Primary Impression: Odontalgia Dispostion Home / Self-Care Condition GOOD Prescriptions Hydrocodone/Acetaminophen 5MG/325MG (Inglewood 5MG/325MG) Tab 1-2 TABLET PO Q6H Y for Pain, #15 TAB For Initial Treatment Prov: Favio Freeman PA-C 12/25/16 Penicillin V Potassium (Veetids) 500 Mg Tab 500 MG PO QID for 10 Days, #40 TAB Prov: Favio Freeman PA-C 12/25/16 Referrals Cristel Espinoza (PCP) Patient Instructions My [facility] Additional Instructions You have been treated in the Emergency Department for Dental Pain. You have received pain medicine in the emergency department which impairs your ability to operate a vehicle. It is illegal for you to drive after receiving these medicines. You have been prescribed NORCO to be used for pain control. This is a narcotic medication. You cannot drive or consume alcohol while on this medicine. This medicine should only be used for pain that cannot be controlled with over-the- counter pain medicines. Do not take this with Tylenol as early has Tylenol in it. You were prescribed penicillin to be taken every 6 hours. This is an antibiotic. All antibiotics have the potential to cause diarrhea. Stop this medication and contact a medical provider if you were to develop any significant adverse side effects including: wheezing, shortness of breath, passing out, vomiting, or a diffuse rash. Always take antibiotics as directed and COMPLETE the ENTIRE course regardless of the improvement of your symptoms. You be given your first dose of penicillin here, you may take your next dose around midnight. Refrain from smoking cigarettes or using chewing tobacco until you have been evaluated by your dentist. Keeping beverages lukewarm and consuming soft foods can decrease your pain. Warm compresses over the affected area may offer some relief. You MUST seek evaluation of your dental pain by a dentist following your visit to the Emergency Department. The Emergency Department is not capable of treating dental issues long-term. You should call your dentist as soon as possible to make an appointment for evaluation of your dental pain. Please call the contact information for Dr. Luther as we discussed. Return to the emergency department if you develop the following symptoms despite treatment course outlined above: fever, intractable pain, increased redness, swelling, or purulent discharge. Please return to emergency department with any new/concerning symptoms.
[2016-12-25 17:49] VITALS: BP 150/98; PULSE 88; O2SAT 96
== END 2016-12-25 17:52 | disposition home or self-care (01) ==
LOC: C.EDB 16:59 → C.EDD 17:52
DX: K08.89 Other specified disorders of teeth and supporting structures (principal); F41.9 Anxiety disorder, unspecified; F32.9 Major depressive disorder, single episode, unspecified; K25.9 Gastric ulcer, unspecified as acute or chronic, without hemorrhage or perforation; I10 Essential (primary) hypertension; F43.10 Post-traumatic stress disorder, unspecified; M54.5 Low back pain; K21.0 Gastro-esophageal reflux disease with esophagitis; Z72.0 Tobacco use; Z79.899 Other long term (current) drug therapy

== ENCOUNTER 2022-04-04 10:36 | Observation (INO) ==
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
--- NOTE | 2022-04-04 12:02 | XRay Report ---
XR facial bones <3V CLINICAL HISTORY: tongue piercing, bottom part retracted into tongue COMPARISON: Facial bone CT October 06, 2018. FINDINGS: A tongue piercing is noted. The inferior aspect appears projects over the tongue and may b e retracted. IMPRESSION: Inferior aspect of tongue piercing projects over the tongue and may be partially retracte d. ACT 112: Negative or not required by law. Electronically signed by: Jose Raul Simmons M.D. 04/04/2022 12:00 PM
[2022-04-04] MEDS ORDERED: AMPICILLIN/SULBACTAM SOD 3,000 MG in 0.9 % SODIUM CHLORIDE 100 ML IV STA (12:21)
[2022-04-04] MEDS ORDERED: oxyCODONE HCL IR 5 MG TAB (IMMEDIATE RELEASE) PO STA (12:21)
[2022-04-04 12:53] LABS: Basophils # (auto) 0.15 K/uL (0-0.2); Basophils % (auto) 1.8 %; Eosinophils # (auto) 0.67 K/uL (0-0.50); Eosinophils % (auto) 8.1 %; Hematocrit (blood only) 47.5 % (40.1-51.0); Hemoglobin 16.2 g/dl (14.0-18.0); Immature Granulocytes # (auto) 0.02 K/uL (0.00-0.02); Immature Granulocytes % (auto) 0.2 %; Lymphocytes # (auto) 2.68 K/uL (1.2-3.4); Lymphocytes % (auto) 32.4 %; Mean Corpuscular Hemoglobin 29.6 pg (25.0-34.0); Mean Corpuscular Hgb Conc 34.1 g/dL (32.0-36.0); Mean Corpuscular Volume 86.8 fL (80.0-100.0); Mean Platelet Volume 9.4 fL (9.4-12.4); Monocytes % (auto) 9.7 %; Neutrophils # (auto) 3.94 K/uL (1.4-6.5); Neutrophils % (auto) 47.8 %; Platelet Count 344 K/uL (130-400); RDW Coefficient of Variation 13.1 % (11.5-14.5); RDW Standard Deviation 41.5 fL (36.4-46.3); Red Blood Count 5.47 M/uL (4.63-6.08); White Blood Count 8.26 K/ul (4.8-10.8)
[2022-04-04 13:14] LABS: Albumin Globulin Ratio 1.3 (0.9-2); Albumin Level 4.3 gm/dl (3.4-5.0); BUN Creatinine Ratio 12.4 (10-20); Bilirubin,Total 0.9 mg/dl (0.2-1.0); Calcium 9.5 mg/dl (8.5-10.1); Creatinine Clr Calc Pharmacy 81.5 ml/min; Est GFR (African American) 112.7 ml/min; Est GFR (Non-African American) 97.3 ml/min; Globulin 3.2 gm/dl (2.5-4.0); Potassium 3.8 mmol/L (3.5-5.1); Total Protein 7.5 gm/dl (6.0-8.3)
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
[2022-04-04] MEDS ORDERED: traMADol HCL 50 MG TABLET PO PRN (13:19)
[2022-04-04] MEDS ORDERED: ACETAMINOPHEN 325 MG TAB PO PRN (17:00)
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
[2022-04-04] MEDS ORDERED: KETOROLAC TROMETHAMINE 15 MG/ML VIAL ONE (17:40)
[2022-04-04] MEDS ORDERED: diphenhydrAMINE Capsule 25 MG CAP PO ONE (17:46)
[2022-04-04] MEDS ORDERED: MAGNESIUM SULFATE / D5W 1 GM/100 ML BAG IV ONE (17:46)
[2022-04-04] MEDS: lisinopril 20 MG TAB PO SCH (17:46)
[2022-04-04] MEDS: KETOROLAC TROMETHAMINE 15 MG/ML VIAL IV PRN (18:07)
[2022-04-04] MEDS: AMPICILLIN/SULBACTAM SOD 3,000 MG in 0.9 % SODIUM CHLORIDE 100 ML IV SCH (20:04)
[2022-04-04] MEDS ORDERED: traZODone HCL 50 MG TAB PO SCH (21:00)
[2022-04-04] MEDS: CHLORHEXIDINE GLUCONATE 0.12% 480 ML MT SCH (21:43)
[2022-04-05] MEDS: AMPICILLIN/SULBACTAM SOD 3,000 MG in 0.9 % SODIUM CHLORIDE 100 ML IV SCH ×2 (02:18→10:18)
[2022-04-05 06:33] LABS: Hematocrit (blood only) 46.8 % (40.1-51.0); Hemoglobin 15.7 g/dl (14.0-18.0); Mean Corpuscular Hgb Conc 33.5 g/dL (32.0-36.0); Mean Corpuscular Volume 89.3 fL (80.0-100.0); Platelet Count 310 K/uL (130-400); RDW Coefficient of Variation 13.2 % (11.5-14.5); RDW Standard Deviation 43.2 fL (36.4-46.3); Red Blood Count 5.24 M/uL (4.63-6.08)
[2022-04-05] MEDS ORDERED: PANTOprazole 40 MG TAB PO SCH (09:00)
[2022-04-05] MEDS: CHLORHEXIDINE GLUCONATE 0.12% 480 ML MT SCH ×2 (10:24→12:02)
[2022-04-05] MEDS: lisinopril 20 MG TAB PO SCH (10:25)
[2022-04-05] MEDS: KETOROLAC TROMETHAMINE 15 MG/ML VIAL IV PRN ×2 (10:31→16:03)
--- NOTE | 2022-04-05 11:03 | Communication Note ---
Date of Service: April 05, 2022 02/[id number]/[id number] 02/27/2022-EKG-ST 2 122 w/occas. PVC's;ns st abnl
[2022-04-05] MEDS ORDERED: fentaNYL citrate 100 MCG/2 ML VIAL IV PRN (11:16)
[2022-04-05] MEDS ORDERED: ONDANSETRON INJ 2 MG/ML 2 ML VIAL IV PRN (11:16)
[2022-04-05] MEDS ORDERED: NALOXONE HCL 0.4 MG/1 ML VIAL/CARP IV PRN (11:16)
[2022-04-05] MEDS ORDERED: LABETALOL HCL IV 5 MG/ML 20ML IV PRN (11:16)
[2022-04-05] MEDS ORDERED: ePHEDrine sulfate 50 MG/ML AMP IV PRN (11:16)
[2022-04-05] MEDS ORDERED: PROMETHAZINE HCL 12.5 MG in SODIUM CHLORIDE 0.9% 50 ML IV PRN (11:16)
[2022-04-05] MEDS ORDERED: ATROPINE SULFATE 0.1 MG/ML 10ML SYR IV PRN (11:16)
[2022-04-05] MEDS ORDERED: FLUMAZENIL 0.1 MG/1 ML 10 ML VIAL IV PRN (11:16)
--- NOTE | 2022-04-05 11:19 | History & Physical Bridge Note ---
Date of Service April 05, 2022 History & Physical Bridge Note I have examined the patient, reviewed the History & Physical and in the interval since the performance of the History & Physical I have noted the following changes of clinical significance: no changes noted COVID neg less swelling but piercing still imbedded in the tongue muscles Plan excision and D/C today
[2022-04-05] MEDS ORDERED: fentaNYL citrate 100 MCG/2 ML VIAL ONE (11:28)
[2022-04-05] MEDS ORDERED: MIDAZOLAM HCL 1 MG/ML 2ML VIAL ONE (11:28)
[2022-04-05] MEDS ORDERED: LIDOCAINE/EPINEPHRINE 1.7 ML CTR ONE ×2 (11:41→11:55)
[2022-04-05] MEDS ORDERED: PROPOFOL IV EMULSION 10 MG/ML 20 ML VIAL IV ONE (11:51)
[2022-04-05] MEDS ORDERED: ONDANSETRON INJ 2 MG/ML 2 ML VIAL ONE (11:51)
[2022-04-05] MEDS ORDERED: ROCURONIUM BROMIDE 10 MG/ML 5 ML VIAL IV ONE (11:51)
[2022-04-05] MEDS ORDERED: DEXAMETHASONE SOD INJ 4 MG/ML VIAL ONE (11:51)
[2022-04-05] MEDS ORDERED: LARYING-O-JET KIT (LTA) ONE (11:57)
--- NOTE | 2022-04-05 12:25 | Operative Report ---
PG Post Operative Report Pre & Post Diagnosis Operation Date: 04/05/22 12:00 Pre-Op Diagnosis: Tongue Swelling Post-Op Diagnosis: Tongue Swelling I identified the patient and participated in the time-out.: Yes Procedure Operation Date: 04/05/22 12:00 Actual Procedures p Removal of Foreign Object of Tongue(Not Applicable) - Marcos Lewis DMD Surgeon Marcos Lewis, GALILEA Real Estate Transaction Coordinator none Estimated Blood Loss 1 Findings Consistent with Post-Op Diagnosis infected tongue piercing Specimens metal tongue stud given back to patient Drains none Anesthesia Type General Complications none Indications infected tongue stud imbedded into the muscles of the tongue Description of Procedure Pre-op=infected tongue stud imbedded into the muscles of the tongue K14.0 CPT 80888 Once cleared for surgery general anesthesia was achieved, the eyes were protected by the anesthesia dept criteria. A time out was take for patient ID, antibiotics, equipment and position verification once all agreed the procedure began. Local anesthesia was given into each area using Lidocaine 2 % with a vasoconstrictor ( 1.8 ml per site). A throat pack was placed after the oral cavity was irrigated with saline. Once a surgical level of anesthesia was obtained and the local anesthesia was given time for the blocks the surgery was started. I turned my attention to the ventral surface of the tongue An Incision was made over the imbedded metal ball on the under surface of the tongue.The full thickness flap was reflected,until the large metal ball was encounter. I now was able to drain the infection and located the piercing. With care I unscrewed the ball and was now able to push the tongue stud to the dorsa tongue surface and remove. Once the infection was drained and the metal tongue piercing was removed I irrigated the site with Peridex and NS solution. Now using a 4-0 Vicryl suture a few sutures were placed to close the incision site. I inspected the sites to insure all bleeding was controlled. I removed the throat pack and suctioned the throat. A gauze pressure dressings were placed. All instrument and sponge count was correct. the patient was allowed to awake from the anesthesia. Once full awake the anesthesia tube was removed and the patient was taken to the recovery room with all vital sign stable. The patient tolerated the surgery very well. I will follow the patient in my office, Rx and instructions will be given upon discharge. I attest to the content of the Intraoperative Record and any orders documented therein. Any exceptions are noted below.
--- NOTE | 2022-04-05 12:50 | Anesthesiology Progress Note ---
Date of Service April 05, 2022 Anesthesia Post Procedure Vital Signs Vital Signs: Temp Pulse Pulse Resp BP Pulse Ox O2 Del Method 04/05/22 12:45 65 20 146/93 H 97 Room Air 04/05/22 12:35 68 12 141/103 H 99 Room Air 04/05/22 12:25 74 25 H 157/105 H 100 Oxymask 04/05/22 12:17 36.1 C L 84 21 157/110 H 100 Oxymask 04/05/22 11:04 36.9 C 74 20 127/100 99 Room Air 04/05/22 06:19 36.7 C 81 18 142/76 H 96 Room Air 04/04/22 22:04 36.8 C 73 18 161/85 H 97 Room Air 04/04/22 19:00 60 16 176/107 H 96 Room Air 04/04/22 17:02 76 18 177/100 H 96 Room Air 04/04/22 16:45 71 14 161/107 H 97 Room Air 04/04/22 13:00 65 18 153/11 H 99 Room Air O2 Flow Rate 04/05/22 12:45 04/05/22 12:35 04/05/22 12:25 10 04/05/22 12:17 10 04/05/22 11:04 04/05/22 06:19 04/04/22 22:04 04/04/22 19:00 04/04/22 17:02 04/04/22 16:45 04/04/22 13:00 Pain Intensity Head: Pain Intensity: 6 Transfer of Care Handoff Completed per policy Notes Mental Status: alert / awake / arousable Patient Amnestic to Procedure: Yes Nausea / Vomiting: adequately controlled Pain: adequately controlled Airway Patency, RR, SpO2: stable & adequate BP & HR: stable & adequate Hydration State: stable & adequate Anesthetic Complications: no major complications apparent
[2022-04-05] MEDS ORDERED: HYDROCODONE/ACETAMOPHEN 5/325MG TAB PO PRN (13:43)
[2022-04-05] MEDS ORDERED: HYDROCODONE/ACETAMOPHEN 5/325MG TAB PO STA (13:44)
--- NOTE | 2022-04-05 14:09 | Discharge Summary ---
Date of Service April 05, 2022 Admission HPI Per Admitting Provider Enmanuel is a 42 year old male with a PMH significant for Antisocial personality disorder, PTSD, bipolar disorder, tobacco abuse, who presented to them [facility] ED on 04/04/22 with a chief complaint of his tongue piercing being stuck. Per the patient, he had a vertical tongue piercing placed professionally last week. Yesterday, while drinking from a straw the bottom ball of the piecing moved into his tongue. He attempted to dislodge it multiple times himself but was unsuccessful. In the ED the patient was found to be stable and in no acute distress. Oral surgery was contacted and recommended observation with IV antibi otics and they will operate on him tomorrow. The patient was started on Unasyn in the ED. Principal Diagnosis Tongue foreign body and infection Discharge Exam PA Supervision Note: Vitals reviewed Gen: [AAOx3, NAD] HEENT: [anicteric sclerae, EOMI, tongue with sutures in place underneath, some mild erythema and edema, airway patent] CV: [RRR no mgr nl S1S2] Pulm: [CTAB no wcr] Abd: [+BS soft NT ND no masses or hernias] Ext: [no edema, 2+ DP pulses] Skin: [no rashes, warm/dry] Neuro: [full strength throughout] Discharge Data Allergies Allergy/AdvReac Type Severity Reaction Status Date / Time tramadol Allergy Severe SHORTNESS Verified 04/04/22 15:05 OF BREATH ibuprofen AdvReac Intermediate Bleeding Verified 04/04/22 15:05 Ulcers FISH Allergy Intermediate RASH Uncoded 04/04/22 15:05 Consultations 04/04/22 12:25 ED Decision to Admit Stat 04/04/22 13:28 Consult Oromaxillofacial Surgery Routine Procedures Performed Operation Date: 04/05/22 12:00 Actual Procedures p Removal of Foreign Object of Tongue(Not Applicable) - Marcos Lewis, DMD Hospital Course (1) Tongue swelling: -Patient without signs of significant tongue swelling or air way compromise -starte don Unasyn and convert to Augmentin on discharge Appreciate OMFS management with surgical removal and post-op instructions pain control as per surgeon f/u with OMFS after discharge (2) Post-traumatic stress disorder: -SALES SUPERVISOR meds (3) Depression: -SALES SUPERVISOR meds (4) Anxiety: -SALES SUPERVISOR meds (5) Adult antisocial behavior: -SALES SUPERVISOR meds Plan Dispo-dc to home Total Time Total Time Spent Total Time Spent (In Minutes): 35 min Discharge Plan Discharge Items Patient Disposition: Home - Self-Care Reason For Visit: TONGUE SWELLING Discharge Diagnosis: S/P PIERCING INFECTION OF THE TONGUE Condition on Discharge: Good Activity: Resume your previous activity Lifting: Gradually increase as tolerated Bathing: No limitations Exercise/Sports: Gradually increase as tolerated Driving/Machine Use: Resume 1 day after discharge Weightbearing: Full weightbearing Non-emergency contact: Surgeon Call non-emergency contact if: your temperature is above 101.5, your wound has increased drainage and your wound pain has increased Follow-up/Referrals: Alma Newell MD [Primary Care Provider] - Marcos Lewis DMD [Physician] - 04/26/22 1:30 pm (APPT MADE VIA DR [place] DUBOSE AT OFFICE.) Diet: Full liquid and Clear liquid Diet Texture: Easy to Chew Addtl Attending Provider Instructions: ADDITIONAL ACTIVITY RECOMMENDATIONS: * Starting tonight rinse with the Peridex as directed then 2 x a day * it is very important to keep well hydrated, this prevents fever and possible INFECTION * over the counter pain medications is all that is required SPECIAL CARE INSTRUCTIONS: *It is not uncommon that between day 2-4 that your swelling will be at its worst this is very normal, do not be alarmed. * SUCK ON ICE POPS FOR THE the next 24 to 36 hours. This will help keep the swelling down. * Tomorrow start rinsing your mouth with 1/2 teaspoon salt in 8 ounces warm water. This rinse should be used every 4-6 hours. * Some swelling is common. It should gradually decrease within 4-5 days. * A certain amount of bleeding is to be expected. It is often possible to control mild oozing by placing folded gauze over the area and biting down for 30 minutes. If you are unable to control excessive bleeding, call Dr Lewis at [phone] * You may experience some discomfort for a few days. If pain or swelling increases, Call Dr Lewis * Return to the office for a follow up check up on: April 26 2022 at 1:30 pm * office address--[facility] [address]. phone # [phone] Pending Studies at Discharge: No Stand-Alone Forms: My [facility], Smoking Cessation Medications and DC Order Prescriptions: Continued amoxicillin-pot clavulanate 875-125 mg tablet 1 tab PO Q12H Qty: 14 0RF trazodone 50 mg tablet 75 mg PO HS lisinopril 20 mg tablet 20 mg PO DAILY omeprazole magnesium [Prilosec OTC] 20 mg Tablet,Delayed Release (Dr/Ec) 20 mg PO DAILY asenapine maleate 5 mg tablet, sublingual 5 mg SUBLINGUAL HS Discharge Orders: Discharge Order (Routine); Ordered 04/05/22 Ordered By: Marcos Lewis Admission Data Admit Date/Time: 04/04/22 14:04 Attending Provider: Shobha Palacio Admit Provider: Bassam Hinojosa Primary Care Provider: Alma Newell V. Other Providers: Bassam Hinojosa ; Marcos Lewis Coding Level of Care Code 36639 OBS Care - Discharge Diagnoses Tongue swelling R22.0 Post-traumatic stress disorder F43.10 Depression F32.9 Anxiety F41.9 Adult antisocial behavior Z72.811
[2022-04-05] MEDS ORDERED: HYDROCODONE/ACETAMOPHEN 5/325MG TAB PO ONE (14:39)
== END 2022-04-05 16:49 | disposition home or self-care (01) ==
LOC: EDINP 10:36 → ED 10:36 → SUATTDRO 14:04 → 3W 19:00